=== PATIENT | female | born 1965 | race Two or more races ===

== ENCOUNTER 2016-12-26 00:11 | Emergency (ER) | payer MEDICAID, OTHER ==
[2016-12-26] MEDS ORDERED: IOPAMIDOL 370 (76%) 100 ML VIAL IV ONE (00:12)
[2016-12-26 01:10] LABS: HCG,QUALITATIVE URINE NEGATIVE
[2016-12-26 01:12] LABS: URINE BILIRUBIN NEGATIVE (NEGATIVE); URINE BLOOD 1+ (NEGATIVE); URINE GLUCOSE (UA) NEGATIVE (NEGATIVE); URINE LEUKOCYTE ESTERASE NEGATIVE (NEGATIVE); URINE NITRITE NEGATIVE (NEGATIVE); URINE PROTEIN NEGATIVE (NEGATIVE); URINE UROBILINOGEN NORMAL (0-1 mg/dl)
[2016-12-26 01:14] LABS: ABSOLUTE NEUTROPHIL COUNT 7.2 K/mm3 (1.8-7.7); BASO % 0.3 % (0.2-1.0); EOS # 0.1 (0.0-0.5); EOS % 1.2 % (0.9-2.9); HEMATOCRIT 39.6 % (37.0-47.0); HEMOGLOBIN 12.9 gm/l (12.0-16.0); IMM NEUT% 0.3 % (0-1); LYMPH # 3.6 (1.0-4.8); LYMPH % 31.6 % (15-45); MEAN CELL VOLUME 93.4 fl (81.0-99.0); MEAN CORPUSCULAR HEMOGLOBIN 30.4 pg (27.0-31.0); MEAN CORPUSCULAR HGB CONC 32.6 g/dl (33.0-37.0); MEAN PLATELET VOLUME 10.2 fl (7.4-10.4); MONO # 0.4 (0.0-0.8); MONO % 3.8 % (4-12); NEUT % 62.8 % (43-75); PLATELET COUNT 347 K/mm3 (130-400); RED CELL DISTRIBUTION WIDTH 13.1 % (11.5-14.5)
[2016-12-26] MEDS ORDERED: LACTATED RINGERS 1,000 ML ONE (01:16)
[2016-12-26 01:29] LABS: URINE APPEARANCE SL CLOUDY; URINE COLOR YELLOW
[2016-12-26 01:32] LABS: I-STAT CREATININE 0.7 mg/dL (0.6-1.3)
[2016-12-26 01:38] LABS: URINE BACTERIA 3+; URINE MUCUS 3+
--- NOTE | 2016-12-26 08:24 | CT ---
CT ABDOMEN AND PELVIS WITH CONTRAST HISTORY: Right lower quadrant abdominal pain. TECHNIQUE: Following intravenous administration of 100cc of Isovue-370, contiguous axial images were acquired from the lung bases to the ischial tuberosities. Oral contrast was not administered. COMPARISON:None. FINDINGS: LUNG BASES: No gross airspace consolidation or pleural effusion. LIVER: No focal lesion. SPLEEN: No focal lesion. PANCREAS: No focal lesion. ADRENAL GLANDS: No mass effect. KIDNEYS: No focal lesion. No collecting system dilatation. GALLBLADDER: Present. BOWEL: Moderate fecal loading. Limited assessment of the distal colon due to decompression. No abnormal small bowel dilatation. There is enhancement of scattered loops of small bowel without obvious associated wall thickening. APPENDIX: Normal gas-filled appendix. PELVIC ORGANS: Nonspecific heterogeneous enhancement of the uterus, consider sonography if there is associated pain. No adnexal mass effect. FREE FLUID: No gross free fluid identified. ABDOMINOPELVIC LYMPH NODES: No abnormally enlarged lymph nodes identified. ABDOMINAL AORTA: Normal caliber. 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 IMPRESSION: 1. Nonobstructive appearance of bowel with normal appendix. Nonspecific enhancement of small bowel loops, which can indicate enteritis. 2. Heterogeneous enhancement of the uterus which could relate to myomatous change, consider pelvic sonography if there is associated pain. No adnexal mass effect or free fluid. 3. L4 spondylolysis with associated anterolisthesis; ongoing motion and instability at this level are possible, correlate for possible right L4 radiculopathy. Preliminary report relayed to the Emergency Medicine medical service by Dr. Fraire on 01/05/2017 at 0255 hours.
[2016-12-26 16:20] LABS: ALB/GLOB RATIO 1.5 (>1.0); ALBUMIN 4.3 gm/dL (3.5-5.7); CALCIUM 9.3 mg/dL (8.6-10.3)
== END 2016-12-26 04:27 | disposition home or self-care (01) ==
LOC: ED 00:11 → EEVIPCON 00:11 → ED 04:27
DX: R10.31 Right lower quadrant pain (principal)
CPT/HCPCS: 81025; 85025; 87086; 80053; 81001; 74177; 99283; 96360; 99284; J7120; Q9967